=== PATIENT | male | born 1970 | race Caucasian/White ===

== ENCOUNTER 2022-03-03 03:00 | Emergency (ER) | payer SELFPAY ==
[~2022-03-03] VITALS: Ht 172.7 cm; Wt 86.2 kg
[2022-03-03 03:04] VITALS: BP_SYST 189
--- NOTE | 2022-03-03 03:04 | NUR ---
Patient to [facility] for evaluation.
--- NOTE | 2022-03-03 03:07 | NUR ---
present to ED accompanied by [facility] for medical clearance. Patient reports has history of DM. Denies any complaints at this time. Denies any pain. MD notified.
--- NOTE | 2022-03-03 03:08 | NUR ---
ER Dr. Melissa at bedside examining patient.
[2022-03-03 03:16] VITALS: BP_SYST 189
--- NOTE | 2022-03-03 03:16 | NUR ---
Patient and offiers given written and verbal discharge instructions and verbalizes understanding. ER MD discussed with patient the results and treatment provided. Patient in stable condition. ID arm band removed. Patient educated on pain management and to follow up with PMD. Pain Scale 0/10 Opportunity for questions provided and answered.
== END 2022-03-03 03:16 ==
LOC: SED 03:00
DX: Z02.89 Encounter for other administrative examinations (principal); E11.9 Type 2 diabetes mellitus without complications
CPT/HCPCS: 99283